=== PATIENT | male | born 2000 | race Caucasian/White ===

== ENCOUNTER → 2024-08-05 17:41 | Outpatient (REF) | payer OTHER, SELFPAY | LOC: RAD 17:41 | PROVIDERS: ATTENDING PHYSICIAN Physical Medicine & Rehabilitation Sports Medicine; FAMILY PHYSICIAN Nurse Practitioner Family | DX: M79.A21 Nontraumatic compartment syndrome of right lower extremity (principal); M79.A22 Nontraumatic compartment syndrome of left lower extremity | CPT/HCPCS: 73590 ==

== ENCOUNTER → 2024-10-30 15:04 | Outpatient (REF) | payer OTHER, SELFPAY | LOC: RCS 15:04 | PROVIDERS: ATTENDING PHYSICIAN Internal Medicine Cardiovascular Disease; FAMILY PHYSICIAN Nurse Practitioner Family | DX: R00.0 Tachycardia, unspecified (principal); R42 Dizziness and giddiness | CPT/HCPCS: 93306 ==